=== PATIENT | female | born 1995 | race African-American/Black ===

== ENCOUNTER → 2019-06-09 | Outpatient (CLI) | payer OTHER ==
--- NOTE | 2019-06-10 05:56 | REP ---
Clinical: Abnormal menstrual cycles . Technique: Transabdominal pelvic ultrasound followed by transvaginal examination for better evaluation of the endometrium and adnexa with color Doppler evaluation of the ovaries. Findings: Bladder is unremarkable and measures 12.1 x 8.5 x 9.6 cm . Anteverted and possibly subseptate uterus measures 7.2 x 3.3 x 4.2 cm. The endometrial complex measures 5.0 mm thickness. A small sub centimeter anterior fundal fibroid measures 7 mm. Bilateral ovaries are normal in appearance and vascularity without evidence for torsion. Right ovary measures 3.4 x 2.0 x 2.1 cm ; R I = 0.54 . Left ovary measures 3.9 x 2.8 x 3.4 cm with 2.5 cm cyst ; R I = 0.53 . No pelvic fluid or adnexal mass lesion . Impression: 1. Uterus has a subseptate appearance and includes 7 mm anterior fundal fibroid. 2. Ovaries are normal in vascularity without torsion. 2.5 cm left ovarian cyst possibly physiologic. Consider reevaluation in 4-6 weeks to evaluate for resolution. Electronically Signed by Ajith Gtz MD 06/10/2019 05:47 A
== END ==
LOC: M RAD 10:19
PROVIDERS: ATTEND Advanced Practice Midwife
DX: N92.0 Excessive and frequent menstruation with regular cycle (principal)

== ENCOUNTER 2019-06-15 22:43 | Emergency (ER) | payer OTHER ==
[~2019-06-15] VITALS: Ht 160 cm; Wt 70.9 kg
[2019-06-15] MEDS ORDERED: PREN1CHW6 PO (22:51)
[2019-06-15 22:54] VITALS: BP 143/87
[2019-06-15] MEDS ORDERED: ADACEL/BOOSTRIX VACCINE (DIPHTH/PERTUSS/ACELL/TETANUS)0.5ML SYR (90715) IM ONE (23:00)
[2019-06-15] MEDS ORDERED: AUGMENTIN 875 MG TAB PO ONE (23:45)
[2019-06-15] MEDS ORDERED: AUGM875T28 PO (23:53)
--- NOTE | 2019-06-16 05:35 | REP ---
Clinical: Trauma. Technique: AP, lateral, bilateral oblique views right second digit . Findings: The osseous structures and joint spaces are intact and normal. There is no evidence for acute fracture or dislocation. Surrounding soft tissues are unremarkable. No subcutaneous emphysema or radiodense foreign body. Impression: No acute fracture or dislocation. Electronically Signed by Ajith Gtz MD 06/16/2019 05:27 A
== END 2019-06-16 00:08 | disposition home or self-care (01) ==
LOC: M ED 22:43
DX: S60.121A Contusion of right index finger with damage to nail, initial encounter (principal); S61.300A Unspecified open wound of right index finger with damage to nail, initial encounter; W23.0XXA Caught, crushed, jammed, or pinched between moving objects, initial encounter; Y92.099 Unspecified place in other non-institutional residence as the place of occurrence of the external cause; Y93.9 Activity, unspecified; Y99.9 Unspecified external cause status; F17.200 Nicotine dependence, unspecified, uncomplicated; Z79.899 Other long term (current) drug therapy

== ENCOUNTER 2019-09-15 23:25 | Emergency (ER) | payer OTHER ==
[~2019-09-15] VITALS: Ht 160 cm; Wt 70.9 kg
[~2019-09-15 23:25] MED LIST: AUGM875T28 PO; PREN1CHW6 PO
[2019-09-15 23:27] VITALS: BP 142/73
[2019-09-16 00:56] LABS: INFLUENZA A AMPLIFICATION NEGATIVE (NEGATIVE); INFLUENZA B AMPLIFICATION NEGATIVE (NEGATIVE)
== END 2019-09-16 02:47 | disposition left against medical advice (07) ==
LOC: M ED 23:25
DX: Z53.21 Procedure and treatment not carried out due to patient leaving prior to being seen by health care provider (principal)

== ENCOUNTER → 2023-10-30 | Outpatient (CLI) | payer OTHER | LOC: M RAD 13:11 | PROVIDERS: ATTEND Nurse Practitioner Family | DX: Z30.431 Encounter for routine checking of intrauterine contraceptive device (principal) ==

== ENCOUNTER → 2025-08-04 | Outpatient (REF) | payer OTHER ==
[2025-08-04 15:24] LABS: BASO # 0.0 10^3/uL (0.0-0.2); BASO % 0.4 % (0.0-1.0); EOS # 0.1 10^3/uL (0.0-0.5); EOS % 1.3 % (0.0-3.0); LYMPH # 1.7 10^3/uL (1.5-5.0); LYMPH % 31.7 % (24.0-44.0); MONO # 0.5 10^3/uL (0.0-0.8); MONO % 8.5 % (2.0-8.0); NEUTROPHILS # 3.1 10^3/uL (1.5-8.5); NEUTROPHILS % 57.9 % (36.0-66.0); PLATELET COUNT, AUTOMATED 263 10^3/uL (150-450)
[2025-08-04 15:29] LABS: ALT/SGPT 20 U/L (7.0-40); AST/SGOT 14 U/L (<34); CALCIUM LEVEL 9.0 MG/DL (8.5-10.1); CARBON DIOXIDE LEVEL 26 MMOL/L (20-31); CHLORIDE LEVEL 108 MMOL/L (98-107); CREATININE FOR GFR 0.73 MG/DL (0.55-1.30); GLOMERULAR FILTRATION RATE > 90.0 (>60); POTASSIUM SERUM 4.1 MMOL/L (3.5-5.1); SODIUM LEVEL 138 MMOL/L (136-145)
[2025-08-04 15:49] LABS: ESTIMATED AVERAGE GLUCOSE 100.0 MG/DL (60-110)
[2025-08-04 15:59] LABS: HIV 1&2 SCREEN NEGATIVE (NEGATIVE)
[2025-08-04 16:07] LABS: HEPATITIS C VIRUS ABY INDEX 0.04 INDEX (<0.8)
== END ==
LOC: M LAB REF 14:19
PROVIDERS: ATTEND Nurse Practitioner Family
DX: E66.812 Obesity, class 2 (principal); R53.83 Other fatigue; Z11.9 Encounter for screening for infectious and parasitic diseases, unspecified